=== PATIENT | male | born 1980 | race Caucasian/White ===

== ENCOUNTER 2018-08-08 01:23 | Emergency (ER) | payer MEDICAID ==
[~2018-08-08] VITALS: Ht 172.7 cm; Wt 132.0 kg
[2018-08-08 01:28] VITALS: BP 124/81
== END 2018-08-08 03:09 | disposition left against medical advice (07) ==
LOC: ER 01:23
DX: Z53.21 Procedure and treatment not carried out due to patient leaving prior to being seen by health care provider (principal)

== ENCOUNTER 2024-07-07 21:22 | Emergency (ER) | payer MEDICAID, OTHER ==
[~2024-07-07] VITALS: Ht 177.8 cm; Wt 125.0 kg
[2024-07-07 21:38] VITALS: O2SAT 97
[2024-07-07 21:44] VITALS: TEMP 98.4
[2024-07-07] MEDS: ACETAMINOPHEN 325MG TABLET PO STA (21:44)
[2024-07-07 22:51] LABS: HEMATOCRIT. 42.6 % (42.0-52.0); HEMOGLOBIN. 14.7 g/dL (14.0-18.0); MEAN CORPUSCULAR HEMOGLOBIN 30.5 pg (28.0-32.0); MEAN CORPUSCULAR HGB CONC 34.5 g/dL (31.0-37.0); MEAN CORPUSCULAR VOLUME 88.5 fL (80.0-94.0); MEAN PLATELET VOLUME 7.9 fl (7.4-10.4); PLATELET 188 x1000/uL (130-400); RED BLOOD CELL COUNT 4.81 mill/uL (4.7-6.1); RED CELL DISTRIBUTION WIDTH 15.2 % (11.6-14.6); WHITE BLOOD COUNT 6.9 x1000/uL (4.5-11.0)
[2024-07-07 22:52] LABS: DIFFERENTIAL COMMENT 1
[2024-07-07 22:57] LABS: CHLORIDE 105 mEq/L (98-107); POTASSIUM 3.7 mEq/L (3.5-5.1); SODIUM 138 mEq/L (136-145)
[2024-07-07 22:58] LABS: CALCIUM 9.3 mg/dL (8.7-10.4); CARBON DIOXIDE 26 mEq/L (21-32)
[2024-07-07 23:03] LABS: GLUCOSE 118 mg/dL (70-105); UREA NITROGEN BLOOD 14 mg/dL (9-23)
[2024-07-07 23:04] LABS: TROPONIN I HIGH SENSITIVITY 13 ng/L (3.0-53)
[2024-07-08 00:51] LABS: ANISOCYTOSIS 1+; PLATELET ESTIMATE NORMAL
[2024-07-08] MEDS ORDERED: NAPR-1176 MT (04:05)
[2024-07-08 04:29] VITALS: BP 151/61; PULSE 96; RESP 14; O2SAT 96
[2024-07-12] MEDS ORDERED: AZIT250T12 MT (14:27)
== END 2024-07-08 04:33 | disposition home or self-care (01) ==
LOC: ER 21:22
DX: R05.9 Cough, unspecified (principal); R07.89 Other chest pain; R60.0 Localized edema; I10 Essential (primary) hypertension; Z88.0 Allergy status to penicillin; Z79.1 Long term (current) use of non-steroidal anti-inflammatories (NSAID); Z20.822 Contact with and (suspected) exposure to COVID-19
CPT/HCPCS: 36415; 71045; 80048; 83880; 84484; 85025; 87426; 87804; 93005; 99285